=== PATIENT | female | born 1960 | race Caucasian/White ===

== ENCOUNTER → 2022-05-21 10:51 | Outpatient (CLI) | payer OTHER, MEDICARE, SELFPAY ==
--- NOTE | ~2022-05-21 | XR_ITS ---
EXAMINATION: XR wrist LT 2V, XR hand LT 2V, XR hand RT 2V, XR wrist RT 2V DATE: 05/21/2022 11:40 INDICATION: Rheumatoid arthritis without rheumatoid factor TECHNIQUE: 1. Posteroanterior and lateral views of the left wrist were obtained. 2. Dorsal palmar and lateral views of the left hand were obtained. 3. Posteroanterior and lateral views of the right wrist were obtained. 4. Dorsal palmar and lateral views of the right hand were obtained. COMPARISON: None. FINDINGS: Alignment of the bilateral hands and wrists is normal. No fracture identified. Relatively symmetric b ilateral mild polyarticular osteoarthritis characterized by nonuniform joint space narrowing and/or s mall marginal osteophytes at the radial aspect of the carpi, first metacarpophalangeal joints and mul tiple interphalangeal joints with distal predominance. No erosions to suggest an inflammatory arthrit is such as rheumatoid. Also arguing against rheumatoid arthritis is a relative preservation of the re maining metacarpophalangeal joint spaces. Tiny radiopaque foreign body in the soft tissues at the pal mar/radial aspect of the left second digit at the level of the base of the distal phalanx. Mild peria rticular soft tissue swelling about the interphalangeal joints. IMPRESSION: 1. Typical relatively symmetric pattern of mild polyarticular osteoarthritis at the bilateral hands. 2. Tiny radiopaque foreign body at the distal left second digit. Reviewed, dictated and finalized at location A. IMPRESSION: 1. Typical relatively symmetric pattern of mild polyarticular osteoarthritis at the bilateral hands. 2. Tiny radiopaque foreign body at the distal left second digit. IMPRESSION: 1. Typical relatively symmetric pattern of mild polyarticular osteoarthritis at the bilateral hands. 2. Tiny radiopaque foreign body at the distal left second digit. IMPRESSION: 1. Typical relatively symmetric pattern of mild polyarticular osteoarthritis at the bilateral hands. 2. Tiny radiopaque foreign body at the distal left second digit.
--- NOTE | ~2022-05-21 | XR_ITS ---
EXAMINATION: XR ankle LT 2V, XR foot LT 2V, XR foot RT 2V, XR ankle RT 2V DATE: 05/21/2022 11:40 INDICATION: Rheumatoid arthritis without rheumatoid factor TECHNIQUE: 1. Anteroposterior and lateral view of the left ankle were obtained. 2. Dorsoplantar and lateral views of the left foot were obtained. 3. Anteroposterior and lateral view of the right ankle were obtained. 4. Dorsoplantar and lateral views of the right foot were obtained. COMPARISON: None. FINDINGS: Alignment of the bilateral feet and ankles is normal. 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 No fractures. Moderate osteoarthritis at the righ t first metatarsophalangeal joint. Mild osteoarthritis at many of the remaining joints in the bilater al mid and forefeet. No erosions to suggest inflammatory arthritis. No ankle joint effusions. Bilater al Achilles and plantar calcaneal spurs. The soft tissues are unremarkable. IMPRESSION: 1. Articular osteoarthritis at the bilateral mid and forefeet moderate at the right first metatarsoph alangeal joint and otherwise mild. No erosions to suggest inflammatory arthritis. 2. Bilateral subtalar arthroereisis. 3. Bilateral Achilles and plantar calcaneal spurs. Reviewed, dictated and finalized at location A. IMPRESSION: 1. Articular osteoarthritis at the bilateral mid and forefeet moderate at the r ight first metatarsophalangeal joint and otherwise mild. No erosions to suggest inflammatory arthritis. 2. Bilateral subtalar arthroereisis. 3. Bilateral Achilles and plantar calcaneal spurs. IMPRESSION: 1. Articular osteoarthritis at the bilateral mid and forefeet moderate at the r ight first metatarsophalangeal joint and otherwise mild. No erosions to suggest inflammatory arthritis. 2. Bilateral subtalar arthroereisis. 3. Bilateral Achilles and plantar calcaneal spurs. IMPRESSION: 1. Articular osteoarthritis at the bilateral mid and forefeet moderate at the r ight first metatarsophalangeal joint and otherwise mild. No erosions to suggest inflammatory arthritis. 2. Bilateral subtalar arthroereisis. 3. Bilateral Achilles and plantar calcaneal spurs.
== END ==
PROVIDERS: PCP Family Medicine; Visit Provider Nurse Practitioner Family
DX: M06.872 Other specified rheumatoid arthritis, left ankle and foot (principal); M19.042 Primary osteoarthritis, left hand; M19.041 Primary osteoarthritis, right hand; M19.072 Primary osteoarthritis, left ankle and foot; M19.071 Primary osteoarthritis, right ankle and foot; M77.32 Calcaneal spur, left foot; M77.31 Calcaneal spur, right foot
CPT/HCPCS: 73100; 73120; 73600; 73620